=== PATIENT | male | born 1950 | race Caucasian/White ===

== ENCOUNTER 2017-07-01 17:10 | Emergency (ER) | payer MEDICARE, OTHER ==
--- NOTE | 2017-07-01 18:03 | ER Document Report ---
ED Medical Screen (RME) - General Chief Complaint: Leg Injury Stated Complaint: LEG WEAKNESS Time Seen by Provider: 07/01/17 17:47 Notes: RME DISCLOSURE I have seen this patient as part of a Rapid Medical Evaluation and, if applicable, placed any initially appropriate orders. The patient will be seen and fully evaluated, including a full history and physical exam, by a provider ( in Main ED or Fast Track) when a room becomes available. 66-year-old male here with complaints of inability to move left leg. He states that he was walking then all of a sudden he felt a discomfort in his left hip and his leg suddenly "went out on me". This occurred approximately 3:30 PM and he has been unable to move the leg since then. He denies any headache vision change slurred speech numbness tingling weakness (other than the weakness in the left lower extremity but denies numbness and tingling). No prior history of similar but he does have a history of low back surgery in the lumbar spine does not know the name of the surgery. He denies any prior history of atrial fibrillation or dissection or aneurysm. Denies incontinence retention fevers chills IV drug use. EXAM Ever so slightly cooler left lower extremity versus contralateral Sensation intact but strength 1/5 LLE NOTE Given the history and exam, did not feel code stroke needs activating given paresis onset after left hip discomfort TRAVEL OUTSIDE OF THE [place] IN LAST 30 DAYS: No - Related Data Allergies/Adverse Reactions: No Known Allergies Allergy (Unverified 07/01/17 17:20) Past Medical History - Social History Chew tobacco use (# tins/day): Yes Frequency of alcohol use: None Drug Abuse: None Renal/ Medical History: Denies: Hx Peritoneal Dialysis Past Surgical History: Reports: Hx Appendectomy Physical Exam - Vital signs Vitals: Temp Pulse Resp BP Pulse Ox 98.0 F 75 16 123/69 97 07/01/17 17:32 07/01/17 17:32 07/01/17 17:32 07/01/17 17:32 07/01/17 17:32 Course - Vital Signs Vital signs: Temp Pulse Resp BP Pulse Ox 98.0 F 75 16 123/69 97 07/01/17 17:32 07/01/17 17:32 07/01/17 17:32 07/01/17 17:32 07/01/17 17:32
[2017-07-01 18:23] LABS: ABSOLUTE EOSINOPHILS # (AUTO) 0.2 10^3/uL (0.0-0.6); ABSOLUTE LYMPHOCYTES (AUTO) 1.5 10^3/uL (0.5-4.7); ABSOLUTE MONOCYTES (AUTO) 0.7 10^3/uL (0.1-1.4); BASOPHILS % (AUTO) 0.2 % (0-2); EOSINOPHILS % (AUTO) 1.9 % (0-6); HEMATOCRIT 43.1 % (37.9-51.0); HEMOGLOBIN 14.7 g/dL (13.5-17.0); MEAN CORPUSCULAR HGB CONC 34.1 g/dL (32.0-36.0); MEAN CORPUSCULAR VOLUME 94 fl (80-97); PLATELET COUNT 228 10^3/uL (150-450); RED BLOOD COUNT 4.58 10^6/uL (4.35-5.55); RED CELL DISTRIBUTION WIDTH 13.2 % (11.5-14.0); SEGMENTED NEUTROPHILS % (AUTO) 71.9 % (42-78); TOTAL CELLS COUNTED % (AUTO) 100 %; WHITE BLOOD COUNT 8.3 10^3/uL (4.0-10.5)
[2017-07-01 18:33] LABS: INTERNATIONAL RATION (INR) 0.98; PROTHROMBIN TIME 13.5 SEC (11.4-15.4)
[2017-07-01 18:41] LABS: ANION GAP 6 (5-19); BLOOD UREA NITROGEN 15 mg/dL (7-20); CALCIUM 9.5 mg/dL (8.4-10.2); CARBON DIOXIDE 31 mmol/L (22-30); CHLORIDE 102 mmol/L (98-107); GLUCOSE 120 mg/dL (75-110); POTASSIUM 3.9 mmol/L (3.6-5.0); SODIUM 138.7 mmol/L (137-145)
--- NOTE | 2017-07-01 19:46 | RADIOLOGY REPORT (SQ) ---
EXAM DESCRIPTION: MRI LUMBAR SPINE COMBO COMPLETED DATE/TIME: 07/01/2017 7:30 pm REASON FOR STUDY: LLE flaccid and L hip pain; eval COMPARISON: None. TECHNIQUE: Sagittal and Axial imaging includes T1, T1 post gadolinium, T2, STIR and gradient echo se quences. Coronal T2/HASTE imaging. CONTRAST TYPE AND DOSE: 10 mL Prohance. RENAL FUNCTION: GFR > 60. LIMITATIONS: None. FINDINGS: VISUALIZED UPPER ABDOMEN: Limited evaluation. No acute or suspicious findings suggested. SEGMENTATION: No transitional anatomy. The lowest well-developed disc space is labeled L5-S1. ALIGNMENT: Anatomic. VERTEBRAE: Intact. No fractures. BONE MARROW: Normal. No marrow replacement or reactive changes. DISC SIGNAL: Mild desiccation of the lower discs, particularly L5-S1. POSTERIOR ELEMENTS: Generally intact. No pars defect evident. HARDWARE: None in the spine. CORD AND CONUS: Normal in size and signal intensity. Conus at the appropriate level. SOFT TISSUES: No aortic aneurysm seen. No bulky retroperitoneal adenopathy or mass. No paraspinal mas s or fluid. L1-L2: No significant spinal stenosis or exit foraminal stenosis. L2-L3: No significant spinal stenosis or exit foraminal stenosis. L3-L4: No significant disc bulge. Mild facet arthropathy. No significant spinal stenosis or exit fo raminal stenosis. L4-L5: No significant disc bulge. Mild to moderate facet arthropathy. No significant spinal stenosi s or exit foraminal stenosis. L5-S1: No significant spinal stenosis or exit foraminal stenosis. LOWER THORACIC: Incompletely imaged. No stenosis seen. SACRUM: Visualized upper sacrum intact. ENHANCEMENT: No abnormal enhancement. OTHER: No other significant findings. IMPRESSION: FACET ARTHROPATHY. MILD DISC DESICCATION. NO SIGNIFICANT DISC BULGE. NO STENOSIS OR I MPINGEMENT. TECHNICAL DOCUMENTATION: JOB ID: [id number] [employer]- All Rights Reserved Reading location - IP/workstation name: [email or web address]
--- NOTE | 2017-07-01 20:13 | RADIOLOGY REPORT (SQ) ---
EXAM DESCRIPTION: HIP LEFT AP/LATERAL COMPLETED DATE/TIME: 07/01/2017 7:52 pm REASON FOR STUDY: left hip pain COMPARISON: None. NUMBER OF VIEWS: Two views. TECHNIQUE: AP pelvis and additional frog-leg view of the left hip. LIMITATIONS: None. FINDINGS: MINERALIZATION: Normal. LEFT HIP: No fracture or dislocation. No worrisome bone lesions. RIGHT HIP: No fracture or dislocation. No worrisome bone lesions. PUBIS AND ISCHIUM: No fracture. PELVIS: No fracture. SACRUM: No fracture or dislocation. No worrisome bone lesions. LOWER LUMBAR SPINE: No fracture or dislocation. No worrisome bone lesions. No significant disc disea se. SOFT TISSUES: No findings. OTHER: No other significant finding. IMPRESSION: NEGATIVE STUDY OF THE LEFT HIP AND PELVIS. NO RADIOGRAPHIC EVIDENCE OF ACUTE INJURY. TECHNICAL DOCUMENTATION: JOB ID: [id number] [employer]- All Rights Reserved Reading location - IP/workstation name: [email or web address]
--- NOTE | 2017-07-01 20:35 | ER Document Report ---
ED General - General Chief Complaint: Leg Injury Stated Complaint: LEG WEAKNESS Time Seen by Provider: 07/01/17 17:47 Notes: Patient is a 66 year old male without past medical history who presents with acute onset of left lower extremity weakness at 1530. Patient states that he was walking into the kitchen to begin making dinner when his left leg abruptly "gave out on me". He states that he was able to stabilize himself by grabbing onto the countertop but has been unable to use the left lower extremity since that time. He denies anything seems to improve or worsen the symptoms. He denies any history of similar symptoms in the past. He has not had any upper extremity weakness, right lower extremity weakness bowel or bladder incontinence , urinary retention, and he denies any back or hip pain. Denies any headache or confusion. He does not take any form of anticoagulation. He denies any head trauma. He has a remote history of a polypectomy in the lumbar spine region for a disc herniation. TRAVEL OUTSIDE OF THE [place] IN LAST 30 DAYS: No - Related Data Allergies/Adverse Reactions: No Known Allergies Allergy (Unverified 07/01/17 17:20) Past Medical History - General Information source: Patient - Social History Smoking Status: Never Smoker Chew tobacco use (# tins/day): Yes Frequency of alcohol use: None Drug Abuse: None Lives with: Spouse/Significant other Family History: Reviewed & Not Pertinent Patient has suicidal ideation: No Patient has homicidal ideation: No Renal/ Medical History: Denies: Hx Peritoneal Dialysis Past Surgical History: Reports: Hx Appendectomy Review of Systems - Review of Systems Notes: Constitutional: Negative for fever. HENT: Negative for sore throat. Eyes: Negative for visual changes. Cardiovascular: Negative for chest pain. Respiratory: Negative for shortness of breath. Gastrointestinal: Negative for abdominal pain, vomiting or diarrhea. Genitourinary: Negative for dysuria. Musculoskeletal: Negative for back pain. Skin: Negative for rash. Neurological: Negative for headaches, positive for left lower extremity weakness Physical Exam - Vital signs Vitals: Temp Pulse Resp BP Pulse Ox 98.0 F 75 16 123/69 97 07/01/17 17:32 07/01/17 17:32 07/01/17 17:32 07/01/17 17:32 07/01/17 17:32 Interpretation: Normal Notes: PHYSICAL EXAMINATION: GENERAL: Well-appearing, well-nourished and in no acute distress. HEAD: Atraumatic, normocephalic. EYES: Pupils equal round and reactive to light, extraocular movements intact, sclera anicteric, conjunctiva are normal. ENT: nares patent, oropharynx clear without exudates. Moist mucous membranes. NECK: Normal range of motion, supple without lymphadenopathy LUNGS: Breath sounds clear to auscultation bilaterally and equal. No wheezes rales or rhonchi. HEART: Regular rate and rhythm without murmurs ABDOMEN: Soft, nontender, normoactive bowel sounds. No guarding, no rebound. No masses appreciated. EXTREMITIES: Normal range of motion, no pitting or edema. No cyanosis. NEUROLOGICAL: Face symmetric. Tongue protrudes midline. Extraocular motions intact. Pupils are 2 mm and equally reactive. Normal speech, gait testing deferred due to left lower extremity weakness. 5 out of 5 distal and proximal strength in the bilateral upper extremity's. 5 out of 5 distal and proximal strength in the right lower extremity. Patient is completely flaccid in the left lower extremity with no ability or effort on strength testing. Sensation is grossly intact throughout. Finger to nose testing normal. Pronator drift normal. PSYCH: Normal mood, normal affect. SKIN: Warm, Dry, normal turgor, no rashes or lesions noted. Course - Re-evaluation Re-evalutation: 07/01/17 20:32 Patient presents with complete flaccidity of the left lower extremity with virtually no strength either distally or proximally. I am very worrisome that the patient has had an acute stroke. He has 2+ patellar and ankle reflexes bilaterally. He has a bounding 2+ DP pulse bilaterally. Patient was seen in triage and was not diagnosed as a possible stroke by the triaging provider. Unfortunately on 2 separate occasions I went back to the room to try to evaluate the patient is immediately upon picking up his chart but unfortunately he was already over an MRI receiving an MRI of the spine. I was therefore unable to examine him. When the patient returned to the room at approximately 1999, I went to assess the patient and found his exam to be most consistent with an acute stroke. Patient's symptoms did start at 1530. He will be moved over to the main side, a CT of the head will be obtained, additional stroke protocols will be initiated. He has no additional deficits on examination. 07/01/17 21:12 CT head does how an acute ICH in the right frontal medial. No midline shift. Patient's vitals remain within normal limits. He is on case monitor. He is not anticoagulated. He has not received any blood thinners here in the emergency department. I have contacted [facility] for transfer. I have discussed the results of CT of the head with the radiologist. 07/01/17 21:41 Patient's neurologic exam remains unchanged. I have informed the patient of his acute intracranial bleed. I have discussed this case with the physician facilities assistant under Dr. Luis Eduardo Bragg who has accepted the patient to the intensive care unit at [facility]. Transfer pending at this time. 07/01/17 22:48 Patient neurologic exam remains unchanged with complete spasticity to the left lower extremity no additional neurologic deficits. Blood pressure 137/87. No indication for giving nicardipine infusion at this time. Will continue to monitor closely. 07/01/17 23:43 Neuro exam is unchanged. Patient is stable for transport. - Vital Signs Vital signs: Temp Pulse Resp BP Pulse Ox 98.0 F 58 L 13 130/96 H 97 07/01/17 17:32 07/01/17 22:18 07/01/17 23:38 07/01/17 23:38 07/01/17 23:38 - Laboratory Result Diagrams: 07/01/17 18:14 07/01/17 18:14 Laboratory results interpreted by me: 07/01/17 18:14 Carbon Dioxide 31 H Glucose 120 H - Diagnostic Test Radiology reviewed: Image reviewed, Reports reviewed Radiology results interpreted by me: 07/01/17 22:49 CT head: Right frontal intraparenchymal bleed - EKG Interpretation by Me Additional EKG results interpreted by me: 07/02/17 01:23 Sinus rhythm. Rate 60. No ST elevations or depressions. QTC is 456. Critical Care Note - Critical Care Note Total time excluding time spent on procedures (mins): 40 Comments: Critical care time spent obtaining history from patient or surrogate, discussions with consultants, development of treatment plan with patient or surrogate, evaluation of patient's response to treatment, examination of patient , ordering and performing treatments and interventions, ordering and review of laboratory studies, re-evaluation of patient's condition, ordering and review of radiographic studies and review of old charts Discharge - Discharge Clinical Impression: Acute intracranial hemorrhage, Left leg weakness Condition: Critical Disposition: [facility]
[2017-07-01 21:02] LABS: CHOLESTEROL 147.61 mg/dL (0-200); TRIGLYCERIDES 88 mg/dL (<150)
[2017-07-01 21:13] LABS: DIRECT LDL 74 mg/dL (<100)
--- NOTE | 2017-07-01 21:22 | RADIOLOGY REPORT (SQ) ---
EXAM DESCRIPTION: CT HEAD WITHOUT COMPLETED DATE/TIME: 07/01/2017 9:07 pm REASON FOR STUDY: eval stroke, lle weakness COMPARISON: 03/06/2010 TECHNIQUE: Axial images acquired through the brain without intravenous contrast. Images reviewed wi th bone, brain and subdural windows. Additional sagittal and coronal reconstructions were generated. Images stored on PACS. All CT scanners at this facility use dose modulation, iterative reconstruction, and/or weight based d osing when appropriate to reduce radiation dose to as low as reasonably achievable (ALARA). [facility]: Dose Right [facility]: CareDose [facility]: Dose Right [facility]: Teradose 4D [facility]: Affectiva RADIATION DOSE: mGy. LIMITATIONS: None. FINDINGS: VENTRICLES: Normal size and contour. CEREBRUM: No masses. There is a parenchymal hematoma in the medial right frontal lobe adjacent to th e falx, measuring 1 x 1.5 cm. There may be a small component in the subarachnoid space. No midline shift. No evidence for acute infarction. Normal herrera/white matter differentiation. No areas of low d ensity in the white matter. CEREBELLUM: No masses. No hemorrhage. No alteration of density. No evidence for acute infarction. EXTRAAXIAL SPACES: No fluid collections. No masses. ORBITS AND GLOBE: No intra- or extraconal masses. Normal contour of globe without masses. CALVARIUM: No fracture. PARANASAL SINUSES: No fluid or mucosal thickening. SOFT TISSUES: No mass or hematoma. OTHER: No other significant finding. IMPRESSION: PARENCHYMAL HEMATOMA IN THE MEDIAL RIGHT FRONTAL LOBE DESCRIBED. COMMENT: Pertinent findings on the imaging study reported as a CRITICAL RESULT to TATIANA pike t21:16 on 07/01/2017. Category of Critical Result: Cerebral bleed. Quality ID # 436: Final reports with documentation of one or more dose reduction techniques (e.g., Au tomated exposure control, adjustment of the mA and/or kV according to patient size, use of iterative reconstruction technique) TECHNICAL DOCUMENTATION: JOB ID: [id number] [employer]- All Rights Reserved Reading location - IP/workstation name: [email or web address]
[2017-07-01 23:41] VITALS: BP 130/96
--- NOTE | 2017-07-02 09:57 | EKG REPORT ---
SEVERITY:- BORDERLINE ECG - SINUS RHYTHM PROBABLE LEFT ATRIAL ABNORMALITY BORDERLINE INFERIOR Q WAVES : Confirmed by: Garo Godfrey 02-Jul-2017 09:56:44
== END 2017-07-01 23:50 | disposition short-term general hospital (02) ==
LOC: ER 17:10
DX: I62.9 Nontraumatic intracranial hemorrhage, unspecified (principal); M62.81 Muscle weakness (generalized)
CPT/HCPCS: 93005; 99291; 36415; 85025; 85610; 85730; 80048; 84484; 83036; 80061; 72158; 73502; 70450; 93010; A9577

== ENCOUNTER 2018-09-04 09:12 | Day surgery (SDC) | payer MEDICARE, OTHER ==
[~2018-09-04 09:12] MED LIST: BUPIVACAINE HCL 0.75% INJ/PF (7.5 MG/1 ML) 10 ML SDV OD PRN; KETOROLAC TROMETHAMINE 0.45% 4 DROP/0.4 ML DROPERETTE OD PRN; LIDOCAINE 4% INJ/PF (40 MG/ML) 5 ML AMPUL OD PRN
[2018-09-04] MEDS: TROPICAMIDE 1% OPH SOLN 3 ML OD PRN ×3 (09:30→09:54)
[2018-09-04] MEDS: CYCLOPENTOLATE 0.2%/PHENYLEPHRINE 1% OPH SOLN 2 ML OD PRN ×3 (09:30→09:54)
[2018-09-04] MEDS: BESIFLOXACIN HCL 0.6% OPH SUSP 5 ML BOTTLE OD PRN ×4 (09:31→10:35)
[2018-09-04] MEDS: TETRACAINE HCL 0.5% OPH SOLN 0.6 ML DROPERETTE OD PRN ×2 (09:32→09:58)
[2018-09-04] MEDS ORDERED: CHONDR SU A NA/HYALUR INTRAOC KIT (SURGICARE) ONE (09:32)
[2018-09-04] MEDS ORDERED: PHENYLEPHRINE/KETOROLAC 1%-0.3% 4 ML VIAL ONE (09:32)
[2018-09-04] MEDS ORDERED: LIDOCAINE 1% INJ-PF (10 MG/ML) 30 ML SDV ONE (09:32)
[2018-09-04] MEDS ORDERED: MIDAZOLAM 2 MG/2 ML INJ ONE (10:13)
[2018-09-04] MEDS ORDERED: FENTANYL CITRATE INJ/PF 100 MCG/2 ML AMPUL ONE (10:13)
[2018-09-04] MEDS: DORZOLAMIDE HCL 2%/TIMOLOL MALEAT 0.5% OPH SOLN 10 ML OD PRN ×2 (10:35)
--- NOTE | 2018-09-04 14:05 | [facility] DISCHARGE SUMMARY E ---
[facility] Discharge Summary NAME: TASHA PALAFOX AGE: 67Y ADMITTED: 09/04/2018 DISCHARGED: HOSPITAL COURSE: The patient is a 67-year-old gentleman who underwent uneventful cataract extraction with intraocular lens implant right eye on 09/04/2018. He will be discharged to home. He is instructed to resume preoperative medications. Take Tylenol as needed for discomfort. Keep his eye shielded. To use Prolensa, Besivance, and Pred Forte at 3:00 p.m. and 8:00 p.m. To follow up in my office in one day. DICTATING PHYSICIAN: EDVIN BALLESTEROS M.D. [id number] PHY#: [id number] ID: [id number] JOB#: [id number] ACCT: [id number] cc:EDVIN BALLESTEROS M.D. >
--- NOTE | 2018-09-04 14:05 | [facility] OPERATIVE REPORT E ---
[facility] Operative Report NAME: TASHA PALAFOX AGE: 67Y DATE OF SURGERY: 09/04/2018 ROOM: [facility] Operative Report PREOPERATIVE DIAGNOSIS: CATARACT, RIGHT EYE. POSTOPERATIVE DIAGNOSIS: CATARACT, RIGHT EYE. PROCEDURE PERFORMED: PHACOEMULSIFICATION WITH POSTERIOR CHAMBER INTRAOCULAR LENS, RIGHT EYE. SURGEON: EDVIN BALLESTEROS MD ANESTHESIA: TOPICAL WITH MAC. INDICATIONS FOR SURGERY: Difficulty with night driving. PROCEDURE: The patient was brought to the Operating Room and placed on the operative table. Following tetracaine drops, topical anesthesia was administered. This consisted of instrument wipe pledgets soaked in a solution of 4% Xylocaine mixed with 0.75% Marcaine in a 1:2 ratio. A 2 x 1 cm pledget was placed in the superior fornix. A 1 x 1 cm pledget was placed in the inferior fornix. The eye was patched shut for 5 minutes. The patch was removed. The eye was sterilely prepped and draped in the usual manner. Lid speculum was placed in the eye. The pledgets were removed. 4-0 black silk sutures were placed around the superior and the inferior rectus muscles to be used as traction. A conjunctival peritomy was made at the 10 o'clock position. Hemostasis was obtained with bipolar cautery. A posterior limbal groove was created using a crescent knife and dissected anteriorly towards the cornea. A sharp point blade was used to create a paracentesis site at the 2 o'clock position. A 2.4 mm keratome was used to enter the anterior chamber through the groove. Viscoelastic was injected into the anterior chamber. An anterior capsulotomy was performed using Utrata forceps in a capsulorrhexis fashion. Hydrodissection and hydrodelineation were performed. Phacoemulsification was performed in innctp-[id number]-ctppgev technique. A total of 8.25 seconds phaco time was used. Following this, the I/A unit was used to remove residual cortex. Viscoelastic was injected into the capsular bag. Intraocular lens model [id number], 19.5 diopters, serial number [id number] was placed in the capsular bag. The I/A unit was used to remove residual viscoelastic. The wound was seen to be watertight under high and low pressure, and no sutures were placed. The intraocular lens was well centered. The pressure was adjusted in the eye to normal pressure. The 4-0 black silk sutures and lid speculum were removed. A drop of Cosopt was placed in the eye at the end of surgery. The eye was shielded after Besivance drops were placed. The patient tolerated the procedure well and was sent to the Recovery Room in good condition. DICTATING PHYSICIAN: EDVIN BALLESTEROS M.D. DICTATING PHYSICIAN: EDVIN BALLESTEROS M.D. [id number] PHY#: [id number] ID: [id number] JOB#: [id number] ACCT: [id number] cc:EDVIN BALLESTEROS M.D. >
== END 2018-09-04 11:15 | disposition home or self-care (01) ==
LOC: SC 09:12
PROVIDERS: ATTEND Ophthalmology
DX: H25.813 Combined forms of age-related cataract, bilateral (principal); H11.132 Conjunctival pigmentations, left eye; H53.2 Diplopia; H52.4 Presbyopia; H35.373 Puckering of macula, bilateral; J45.909 Unspecified asthma, uncomplicated; I10 Essential (primary) hypertension; I69.354 Hemiplegia and hemiparesis following cerebral infarction affecting left non-dominant side; Z79.899 Other long term (current) drug therapy; F17.210 Nicotine dependence, cigarettes, uncomplicated
CPT/HCPCS: 66984; V2632; J2250; J3490 ×4; A9270; J3010; C9447; 142

== ENCOUNTER 2018-09-25 07:02 | Day surgery (SDC) | payer MEDICARE, OTHER ==
[~2018-09-25 07:02] MED LIST changes: -BUPIVACAINE HCL 0.75% INJ/PF (7.5 MG/1 ML) 10 ML SDV OD PRN; +BUPIVACAINE HCL 0.75% INJ/PF (7.5 MG/1 ML) 10 ML SDV OS PRN; -KETOROLAC TROMETHAMINE 0.45% 4 DROP/0.4 ML DROPERETTE OD PRN; -LIDOCAINE 4% INJ/PF (40 MG/ML) 5 ML AMPUL OD PRN; +LIDOCAINE 4% INJ/PF (40 MG/ML) 5 ML AMPUL OS PRN
[2018-09-25] MEDS: TETRACAINE HCL 0.5% OPH SOLN 0.6 ML DROPERETTE OS PRN ×2 (07:08→07:48)
[2018-09-25] MEDS ORDERED: LIDOCAINE 1% INJ-PF (10 MG/ML) 30 ML SDV ONE (07:27)
[2018-09-25] MEDS ORDERED: CHONDR SU A NA/HYALUR INTRAOC KIT (SURGICARE) ONE (07:27)
[2018-09-25] MEDS ORDERED: PHENYLEPHRINE/KETOROLAC 1%-0.3% 4 ML VIAL ONE (07:27)
[2018-09-25] MEDS: CYCLOPENTOLATE 0.2%/PHENYLEPHRINE 1% OPH SOLN 2 ML OS PRN ×3 (07:47→08:07)
[2018-09-25] MEDS: BESIFLOXACIN HCL 0.6% OPH SUSP 5 ML BOTTLE OS PRN ×4 (07:47→08:56)
[2018-09-25] MEDS: TROPICAMIDE 1% OPH SOLN 3 ML OS PRN ×3 (07:47→08:07)
[2018-09-25] MEDS: KETOROLAC TROMETHAMINE 0.45% 4 DROP/0.4 ML DROPERETTE OS PRN ×2 (07:48→09:25)
[2018-09-25] MEDS ORDERED: MIDAZOLAM 2 MG/2 ML INJ ONE (08:14)
[2018-09-25] MEDS: DORZOLAMIDE HCL 2%/TIMOLOL MALEAT 0.5% OPH SOLN 10 ML OS PRN ×2 (08:44→08:56)
--- NOTE | 2018-09-25 09:40 | [facility] OPERATIVE REPORT E ---
[facility] Operative Report NAME: TASHA PALAFOX AGE: 67Y DATE OF SURGERY: 09/25/2018 ROOM: [facility] [place] Operative Report PREOPERATIVE DIAGNOSIS: CATARACT, LEFT EYE. POSTOPERATIVE DIAGNOSIS: CATARACT, LEFT EYE. PROCEDURE PERFORMED: PHACOEMULSIFICATION WITH POSTERIOR CHAMBER INTRAOCULAR LENS, LEFT EYE. SURGEON: EDVIN BALLESTEROS MD ANESTHESIA: TOPICAL WITH MAC. INDICATIONS FOR SURGERY: Difficulty watching TV clearly and driving at night. PROCEDURE: The patient was brought to the Operating Room and placed on the operative table. Following tetracaine drops, topical anesthesia was administered. This consisted of instrument wipe pledgets soaked in a solution of 4% Xylocaine mixed with 0.75% Marcaine in a 1:2 ratio. A 2 x 1 cm pledget was placed in the superior fornix. A 1 x 1 cm pledget was placed in the inferior fornix. The eye was patched shut for 5 minutes. The patch was removed. The eye was sterilely prepped and draped in the usual manner. Lid speculum was placed in the eye. The pledgets were removed. 4-0 black silk sutures were placed around the superior and the inferior rectus muscles to be used as traction. A conjunctival peritomy was made at the 10 o'clock position. Hemostasis was obtained with bipolar cautery. A posterior limbal groove was created using a crescent knife and dissected anteriorly towards the cornea. A sharp point blade was used to create a paracentesis site at the 2 o'clock position. A 2.4 mm keratome was used to enter the anterior chamber through the groove. Viscoelastic was injected into the anterior chamber. An anterior capsulotomy was performed using Utrata forceps in a capsulorrhexis fashion. Hydrodissection and hydrodelineation were performed. Phacoemulsification was performed in kwrmgy-dvq-mihirxh technique. A total of 36 seconds phaco time was used. Following this, the I/A unit was used to remove residual cortex. Viscoelastic was injected into the capsular bag. Intraocular lens model [id number], 19.5 diopters, serial number [id number] was placed in the capsular bag. The I/A unit was used to remove residual viscoelastic. The wound was seen to be watertight under high and low pressure, and no sutures were placed. The intraocular lens was well centered. The pressure was adjusted in the eye to normal pressure. The 4-0 black silk sutures and lid speculum were removed. The eye was shielded after Besivance drops were placed. A drop of Cosopt was placed in the eye at the end of the surgery, and Omidria was in the irrigation solution. The patient tolerated the procedure well and was sent to the Recovery Room in good condition. DICTATING PHYSICIAN: EDVIN BALLESTEROS M.D. DICTATING PHYSICIAN: EDVIN BALLESTEROS M.D. [id number] [facility]#: [id number] ID: [id number] JOB#: [id number] ACCT: [id number] cc:EDVIN BALLESTEROS M.D. >
--- NOTE | 2018-09-25 09:44 | [facility] DISCHARGE SUMMARY E ---
[facility] Discharge Summary NAME: TASHA PALAFOX AGE: 67Y ADMITTED: 09/25/2018 DISCHARGED: HOSPITAL COURSE: The patient is a 67-year-old gentleman who underwent uneventful cataract extraction with intraocular lens implant left eye on 09/25/2018. He will be discharged to home. He is instructed to resume preoperative medications, take Tylenol as needed for discomfort, to keep his eye shielded, to use Pred Forte, Prolensa, and Besivance at 3:00 p.m. and 8:00 p.m., to follow up in my office in one day. DICTATING PHYSICIAN: EDVIN BALLESTEROS M.D. [id number] PHY#: [id number] ID: [id number] JOB#: [id number] ACCT: [id number] cc:EDVIN BALLESTEROS M.D. >
== END 2018-09-25 09:37 | disposition home or self-care (01) ==
LOC: SC 07:02
PROVIDERS: ATTEND Ophthalmology
DX: H25.812 Combined forms of age-related cataract, left eye (principal); Z96.1 Presence of intraocular lens; I10 Essential (primary) hypertension; I69.849 Monoplegia of lower limb following other cerebrovascular disease affecting unspecified side
CPT/HCPCS: 66984; V2632; J2250; J3490 ×4; A9270; C9447